=== PATIENT | female | born 1945 | race Caucasian/White ===

== ENCOUNTER 2021-04-07 18:33 | Inpatient (IN) | payer MEDICARE, OTHER ==
[~2021-04-07] VITALS: Ht 167.6 cm; Wt 81.2 kg
[2021-04-07] MEDS ORDERED: ONDA4TAB11 PO (18:54)
[2021-04-07] MEDS ORDERED: NICO2GUM9 BC (18:54)
[2021-04-07] MEDS ORDERED: LAMO200T2 PO (18:54)
[2021-04-07] MEDS ORDERED: OLAN10TA3 IM (18:54)
[2021-04-07] MEDS ORDERED: OLAN10TA73 PO (18:54)
[2021-04-07] MEDS ORDERED: OLAN5TAB3 IM (18:54)
[2021-04-07] MEDS ORDERED: NICO1PAT44 TP (18:54)
[2021-04-07 19:20] LABS: HEMATOCRIT 38.3 % (31.2-41.9); MEAN CORPUSCULAR HEMOGLOBIN 30.4 uug (24.7-32.8); MEAN CORPUSCULAR VOLUME 91.5 fL (75.5-95.3); PLATELET COUNT (AUTO) 296 K/uL (179-408)
[2021-04-07 19:23] LABS: CREATININE 0.8 mg/dL (0.6-1.3); POTASSIUM 3.3 mmol/L (3.5-5.1)
[2021-04-07] MEDS: NICOTINE 14 MG/24HR PATCH TD SCH (19:45)
[2021-04-07] MEDS ORDERED: LAMOTRIGINE 100 MG TABLET ONE (20:00)
[2021-04-07] MEDS ORDERED: NICOTINE 14 MG/24HR PATCH TD ONE (20:00)
[2021-04-07 23:17] LABS: *BILIRUBIN,URIN NEGATIVE (NEGATIVE); *BLOOD, URINE NEGATIVE (NEGATIVE); *COLOR,URINE YELLOW (YELLOW); *KETONES,URINE NEGATIVE (NEGATIVE); *UROBILINOGEN,URINE 0.2 E.U./dl (NORMAL); LEUKOCYTE ESTERASE ,URINE NEGATIVE (NEGATIVE); NITRITE, URINE NEGATIVE (NEGATIVE); UGLUCOSE NEGATIVE (NEGATIVE)
[2021-04-07 23:20] LABS: *CLARITY,URINE HAZY (CLEAR)
[2021-04-07 23:21] LABS: BACTERIA,URINE NONE SEEN /HPF (NONE SEEN); RBC,URINE 0-3 /HPF (0-3); SQUAMOUS EPITHELIAL CELL,UR MODERATE /HPF (NONE SEEN); WBC,URINE 0-3 /HPF (0-3)
[2021-04-08 06:30] VITALS: BP 122/71
[2021-04-08] MEDS ORDERED: ACETAMINOPHEN 325 MG TABLET PO PRN (06:45)
[2021-04-08] MEDS ORDERED: MAG HYDROX/AL HYDROX/SIMETH 30 ML LIQUID UDC PO PRN (06:45)
[2021-04-08] MEDS ORDERED: BLOOD SUGAR DIAGNOSTIC 1 EACH STRIP VI ONE (06:45)
[2021-04-08] MEDS ORDERED: TEMAZEPAM 7.5 MG CAPSULE PO PRN (06:45)
[2021-04-08] MEDS ORDERED: MAGNESIUM HYDROXIDE 30 ML LIQUID UDC PO PRN (06:45)
[2021-04-08 08:26] VITALS: BP 107/74
[2021-04-08] MEDS: NICOTINE 14 MG/24HR PATCH TD SCH (09:00)
[2021-04-08] MEDS ORDERED: LAMOTRIGINE 200 MG TABLET PO SCH (09:00)
[2021-04-08] MEDS: OLANZAPINE ZYDIS 5 MG TAB.RAPDIS PO SCH (15:03)
[2021-04-08] MEDS: LAMOTRIGINE 200 MG TABLET PO SCH (15:03)
[2021-04-08 16:08] VITALS: BP 95/59
[2021-04-08 20:11] VITALS: BP 112/72
[2021-04-08] MEDS: CLONAZEPAM 0.5 MG TABLET PO PRN (22:25)
[2021-04-09 07:30] VITALS: BP 116/79
[2021-04-09 07:42] LABS: HEMATOCRIT 38.5 % (31.2-41.9); MEAN CORPUSCULAR HEMOGLOBIN 30.7 uug (24.7-32.8); MEAN CORPUSCULAR VOLUME 93.3 fL (75.5-95.3); PLATELET COUNT (AUTO) 275 K/uL (179-408)
[2021-04-09 07:54] LABS: BILIRUBIN,TOTAL 0.6 mg/dL (0.2-1.0); CREATININE 0.9 mg/dL (0.6-1.3); MAGNESIUM 2.3 mg/dL (1.8-2.4); POTASSIUM 3.9 mmol/L (3.5-5.1); TOTAL PROTEIN, SERUM 5.9 g/dL (6.4-8.2)
[2021-04-09 08:09] LABS: THYROID STIMULATING HORMONE 2.718 mIU/mL (0.358-3.740)
[2021-04-09] MEDS: OLANZAPINE ZYDIS 5 MG TAB.RAPDIS PO SCH ×4 (09:00→18:01)
[2021-04-09] MEDS: LAMOTRIGINE 200 MG TABLET PO SCH ×2 (09:00→09:45)
[2021-04-09 13:15] LABS: NEUTROPHILS % (MANUAL) 0 % (42-75)
[2021-04-09 15:08] VITALS: BP 119/77
[2021-04-09 20:04] VITALS: BP 133/71
[2021-04-10 07:30] VITALS: BP 154/80
[2021-04-10] MEDS: OLANZAPINE ZYDIS 5 MG TAB.RAPDIS PO SCH ×2 (10:04→18:03)
[2021-04-10] MEDS: LAMOTRIGINE 200 MG TABLET PO SCH (10:04)
[2021-04-10 16:00] VITALS: BP 138/73
[2021-04-10 20:15] VITALS: BP 141/78
[2021-04-11 07:53] VITALS: BP 140/95
[2021-04-11] MEDS: LAMOTRIGINE 200 MG TABLET PO SCH (09:31)
[2021-04-11] MEDS: OLANZAPINE ZYDIS 5 MG TAB.RAPDIS PO SCH (09:31)
[2021-04-11 16:14] VITALS: BP 150/92
[2021-04-11 20:00] VITALS: BP 150/85
[2021-04-11] MEDS: OLANZAPINE 2.5 MG TABLET PO SCH (20:38)
[2021-04-12 07:30] VITALS: BP 116/87
[2021-04-12] MEDS: OLANZAPINE ZYDIS 5 MG TAB.RAPDIS PO SCH (08:40)
[2021-04-12] MEDS: LAMOTRIGINE 200 MG TABLET PO SCH (09:04)
[2021-04-12 20:27] VITALS: BP 132/76
[2021-04-12] MEDS: OLANZAPINE 2.5 MG TABLET PO SCH ×2 (21:00→21:23)
[2021-04-13 07:40] VITALS: BP 136/65
[2021-04-13] MEDS: LAMOTRIGINE 200 MG TABLET PO SCH (09:02)
[2021-04-13] MEDS: OLANZAPINE ZYDIS 5 MG TAB.RAPDIS PO SCH (09:02)
[2021-04-13 16:15] VITALS: BP 108/63
[2021-04-13 20:13] VITALS: BP 112/64
[2021-04-13] MEDS: OLANZAPINE 2.5 MG TABLET PO SCH (20:41)
[2021-04-14 06:17] LABS: *BILIRUBIN,URIN NEGATIVE (NEGATIVE); *BLOOD, URINE NEGATIVE (NEGATIVE); *CLARITY,URINE CLEAR (CLEAR); *COLOR,URINE YELLOW (YELLOW); *KETONES,URINE NEGATIVE (NEGATIVE); *UROBILINOGEN,URINE 0.2 E.U./dl (NORMAL); LEUKOCYTE ESTERASE ,URINE NEGATIVE (NEGATIVE); NITRITE, URINE NEGATIVE (NEGATIVE); PH,URINE 7.5 (5.0-8.0); UGLUCOSE NEGATIVE (NEGATIVE)
[2021-04-14 08:01] VITALS: BP 118/80
[2021-04-14] MEDS: OLANZAPINE ZYDIS 5 MG TAB.RAPDIS PO SCH (08:35)
[2021-04-14] MEDS: LAMOTRIGINE 200 MG TABLET PO SCH (08:35)
[2021-04-14] MEDS: ENSURE ENLIVE (VAN) 240 ML LIQUID PO SCH ×2 (13:00→17:13)
[2021-04-14 16:47] VITALS: BP 119/63
[2021-04-14 20:13] VITALS: BP 114/69
[2021-04-14] MEDS: OLANZAPINE 2.5 MG TABLET PO SCH (20:41)
[2021-04-15 07:46] VITALS: BP 111/77
[2021-04-15] MEDS: OLANZAPINE ZYDIS 5 MG TAB.RAPDIS PO SCH (09:08)
[2021-04-15] MEDS: LAMOTRIGINE 200 MG TABLET PO SCH (09:08)
[2021-04-15] MEDS: ENSURE ENLIVE (VAN) 240 ML LIQUID PO SCH ×2 (09:33→16:52)
[2021-04-15] MEDS: OLANZAPINE 2.5 MG TABLET PO SCH (20:20)
[2021-04-15 20:58] VITALS: BP 154/94
[2021-04-15] MEDS ORDERED: MIRTAZAPINE 15 MG TABLET PO SCH (21:00)
[2021-04-16] MEDS: CLONAZEPAM 0.5 MG TABLET PO PRN (03:27)
[2021-04-16 08:13] VITALS: BP 124/72
[2021-04-16] MEDS: OLANZAPINE ZYDIS 5 MG TAB.RAPDIS PO SCH (08:54)
[2021-04-16] MEDS: LAMOTRIGINE 200 MG TABLET PO SCH (08:54)
[2021-04-16] MEDS: ENSURE ENLIVE (VAN) 240 ML LIQUID PO SCH ×2 (09:05→17:39)
[2021-04-16] MEDS ORDERED: OLANZAPINE 5 MG TABLET PO SCH (21:00)
== END 2021-04-16 18:15 | disposition home health service (06) | DRG 885 ==
LOC: ER 18:37 → GPS 04-08 06:08
PROVIDERS: ADMIT Psychiatry & Neurology Psychiatry; ATTEND Internal Medicine
DX: F31.64 Bipolar disorder, current episode mixed, severe, with psychotic features (principal); E87.6 Hypokalemia; F17.210 Nicotine dependence, cigarettes, uncomplicated; E66.9 Obesity, unspecified; F41.9 Anxiety disorder, unspecified; Z91.19 Patient's noncompliance with other medical treatment and regimen; Z68.28 Body mass index [BMI] 28.0-28.9, adult; Z73.6 Limitation of activities due to disability
CPT/HCPCS: 36415; 70030-TC; 70450; 71045; 83735; 84100; 84443; 85025; 87077; 87086; 97161; A4663; C1758